=== PATIENT | male | born 1970 | race Caucasian/White ===

== ENCOUNTER 2017-05-21 06:31 | Day surgery (SDC) | payer BC ==
[~2017-05-21 06:31] MED LIST: CEFAZOLIN 2 GM/50 ML (PMX) 50 ML IVPB
[2017-05-21] MEDS ORDERED: LIDOCAINE 2% (SDV) 5 ML INJ (07:40)
[2017-05-21] MEDS ORDERED: SUCCINYLCHOLINE CHLORIDE 100 MG/5 ML SYG IV (07:40)
[2017-05-21] MEDS ORDERED: GLYCOPYRROLATE 0.4 MG INJ ×3 (07:40→09:11)
[2017-05-21] MEDS ORDERED: ROCURONIUM 50 MG INJ ×2 (07:40→09:11)
[2017-05-21] MEDS ORDERED: PROPOFOL 20 ML (07:40)
[2017-05-21] MEDS ORDERED: NEOSTIGMINE 3 MG/3 ML SYRINGE ×2 (07:40→09:10)
[2017-05-21] MEDS ORDERED: ROPIVACAINE 0.5 % 30 ML VIAL (07:43)
[2017-05-21] MEDS ORDERED: MIDAZOLAM 1 MG/ML 2 ML INJ (07:44)
[2017-05-21] MEDS: EPINEPHrine 1 MG INJ (08:31)
[2017-05-21] MEDS ORDERED: CEFAZOLIN 1 GM INJ (08:32)
[2017-05-21] MEDS ORDERED: hydrALAzine 20 MG INJ (08:32)
[2017-05-21] MEDS: EPINEPHrine 1 MG/ML 30 ML INJ (08:50)
[2017-05-21] MEDS ORDERED: ONDANSETRON 4 MG INJ (10:02)
[2017-05-21] MEDS: SODIUM CL BACTERIOSTATIC 30 ML INJ (10:05)
[2017-05-21] MEDS: morphine SULFATE/PF (10 MG/10 ML) INJ (10:05)
[2017-05-21] MEDS ORDERED: FENTAnyl 50 MCG/ML VIAL IV ×3 (10:30)
[2017-05-21] MEDS ORDERED: METOCLOPRAMIDE 10 MG INJ IV (10:30)
[2017-05-21] MEDS ORDERED: OXYCODONE/ACETAMINOPHEN (5/325) TAB PO ×2 (10:30)
[2017-05-21] MEDS ORDERED: DIPHENHYDRAMINE 50 MG INJ IV (10:30)
[2017-05-21] MEDS ORDERED: MIDAZOLAM 1 MG/ML 2 ML INJ IV (10:30)
[2017-05-21] MEDS ORDERED: HYDROmorphONE (0.2 MG/ML) 10ML SYG IV ×2 (10:30)
[2017-05-21] MEDS ORDERED: EPHEDrine SULFATE 50 MG/5 ML SYG IV (10:30)
[2017-05-21] MEDS ORDERED: LABETALOL HCL 20MG INJ IV (10:30)
[2017-05-21] MEDS: ONDANSETRON 4 MG INJ IV ×2 (10:41→10:58)
[2017-05-21] MEDS: MEPERIDINE 25 MG INJ IV (10:41)
[2017-05-21] MEDS: hydrALAzine 20 MG INJ IV (10:51)
[2017-05-21] MEDS: HYDROmorphONE (0.2 MG/ML) 10ML SYG IV ×2 (10:59→11:21)
== END 2017-05-21 14:00 | disposition home or self-care (01) ==
LOC: SDS 06:31
DX: S43.431A Superior glenoid labrum lesion of right shoulder, initial encounter (principal); M24.411 Recurrent dislocation, right shoulder; M75.41 Impingement syndrome of right shoulder; M75.101 Unspecified rotator cuff tear or rupture of right shoulder, not specified as traumatic; M10.9 Gout, unspecified; Z85.118 Personal history of other malignant neoplasm of bronchus and lung; X58.XXXA Exposure to other specified factors, initial encounter
CPT/HCPCS: 29806

== ENCOUNTER 2017-06-10 08:15 | Day surgery (SDC) | payer BC ==
[2017-06-10] MEDS ORDERED: FENTAnyl 50 MCG/ML VIAL (09:52)
[2017-06-10] MEDS ORDERED: LIDOCAINE 2% (SDV) 5 ML INJ (09:52)
[2017-06-10] MEDS ORDERED: MIDAZOLAM 1 MG/ML 2 ML INJ (09:52)
[2017-06-10] MEDS ORDERED: PROPOFOL 20 ML (09:52)
== END 2017-06-10 11:13 | disposition home or self-care (01) ==
LOC: GIL 08:15
DX: D12.5 Benign neoplasm of sigmoid colon (principal); K64.8 Other hemorrhoids
CPT/HCPCS: 45385; 88305